=== PATIENT | female | born 1955 ===

== ENCOUNTER 2023-01-16 08:45 | Inpatient (IN) | payer OTHER ==
[~2023-01-16] VITALS: Ht 162.6 cm; Wt 72.6 kg
[2023-01-16] MEDS ORDERED: LABETALOL HCL100 MG PO (09:11)
[2023-01-16] MEDS ORDERED: LOSARTAN-HCTZ1 EAC2 PO (09:11)
[2023-01-16] MEDS ORDERED: LIPITOR40 M1 PO (09:12)
[2023-01-16] MEDS ORDERED: METFORMIN HCL500 M3 PO (09:13)
[2023-01-23] MEDS ORDERED: NIFEDIPINE ER60 M1 (09:07)
== END 2023-01-23 13:41 | disposition home or self-care (01) | DRG 741 ==
LOC: OB/GYN 01-22 06:40 → O/R 01-22 06:40 → CIR.AMB 01-22 08:38 → EDSTATUS 01-22 08:50 → SURH 01-22 14:00 → OB/GYN 01-22 14:56
PROVIDERS: ADMIT Obstetrics & Gynecology Gynecologic Oncology; ATTEND Obstetrics & Gynecology Gynecologic Oncology
PROC: 0UT74ZZ Resection of Bilateral Fallopian Tubes, Percutaneous Endoscopic Approach (ICD-10-PCS; 2023-01-22)
PROC: 0UT24ZZ Resection of Bilateral Ovaries, Percutaneous Endoscopic Approach (ICD-10-PCS; 2023-01-22)
PROC: 07BD4ZZ Excision of Aortic Lymphatic, Percutaneous Endoscopic Approach (ICD-10-PCS; 2023-01-22)
PROC: 07BC4ZZ Excision of Pelvis Lymphatic, Percutaneous Endoscopic Approach (ICD-10-PCS; 2023-01-22)
PROC: 0UT94ZZ Resection of Uterus, Percutaneous Endoscopic Approach (ICD-10-PCS; principal; 2023-01-22 14:00)
DX: C54.1 Malignant neoplasm of endometrium (principal); Z20.822 Contact with and (suspected) exposure to COVID-19

== ENCOUNTER 2023-01-31 00:10 | Emergency (ER) | payer OTHER ==
[~2023-01-31] VITALS: Ht 162.6 cm; Wt 74.8 kg
[~2023-01-31 00:10] MED LIST: LABETALOL HCL100 MG PO; LIPITOR40 M1 PO; LOSARTAN-HCTZ1 EAC2 PO; METFORMIN HCL500 M3 PO; NIFEDIPINE ER60 M1
[2023-01-31] MEDS ORDERED: COLACE100 MG (00:23)
[2023-01-31] MEDS ORDERED: LOVENOX40 MG/0.4 (00:23)
[2023-01-31] MEDS ORDERED: TRAMADOL HCL E100 M1 (00:24)
== END 2023-01-31 03:33 | disposition home or self-care (01) ==
LOC: ER 00:10
DX: K59.00 Constipation, unspecified (principal)